=== PATIENT | female | born 1985 ===

== ENCOUNTER 2018-09-28 14:57 | Outpatient (CLI) | payer OTHER ==
[~2018-09-28] VITALS: Ht 165.1 cm; Wt 98.0 kg
[2018-10-01] MEDS ORDERED: OXC5T PO (07:24)
[2018-10-01] MEDS ORDERED: DOCU100C37 PO (07:24)
[2018-10-01] MEDS ORDERED: ACET-77 PO (07:24)
[2018-10-01] MEDS ORDERED: IBUP-1780 PO (07:24)
== END 2018-09-28 15:09 | disposition home or self-care (01) ==
LOC: PREOP 14:57
PROVIDERS: ATTEND Obstetrics & Gynecology
DX: Z01.818 Encounter for other preprocedural examination (principal)

== ENCOUNTER 2018-09-30 06:20 | Inpatient (IN) | payer OTHER ==
[2018-09-30] VITALS (10 sets, daily range): BP systolic 86–124; BP diastolic 58–76
--- NOTE | 2018-09-30 06:19 | NUR ---
SHARMILA RUSSO presented to unit via ambulation from home, accompanied by s.o, for REPEAT . SHARMILA RUSSO weighed, gowned, voided, and to bed. EFHM and TOCO applied, VS taken. SHARMILA RUSSO oriented to bed controls, call light, TV, heat, and A/C controls.
[~2018-09-30 06:20] MED LIST: CITRIC ACID/SOB CIT (BICITRA) 30 ML UDC ONE; FAMOTIDINE 20MG/2ML IV (PEPCID) ONE; LACTATED RINGERS 1,000 ML IV ONE; METOCLOPRAMIDE INJ 10 MG/2 ML (REGLAN) ONE; ceFAZolin 2 GM/50 ML NS 50 ML ONE
[2018-09-30] MEDS ORDERED: ceFAZolin 2 GM/50 ML NS 50 ML IV ONE (06:30)
[2018-09-30 06:53] LABS: BASOPHILS % (AUTO) 0 % (0-10); EOSINOPHILS # (AUTO) 0.1 10^3/uL (0.0-0.3); EOSINOPHILS % (AUTO) 1 % (0-10); HEMATOCRIT 35 % (35-52); HEMOGLOBIN 11.6 G/DL (11.5-16.0); LYMPHOCYTES # (AUTO) 1.7 X 10^3 (1.0-4.0); LYMPHOCYTES % (AUTO) 19 % (12-44); MEAN CORPUSCULAR HEMOGLOBIN 27 PG (25-34); MEAN CORPUSCULAR HGB CONC 33 G/DL (32-36); MEAN CORPUSCULAR VOLUME 83 FL (80-99); MEAN PLATELET VOLUME 10.3 FL (7.4-10.4); MONOCYTES # (AUTO) 0.8 X 10^3 (0.0-1.0); MONOCYTES % (AUTO) 9 % (0-12); NEUTROPHILS # (AUTO) 6.6 X 10^3 (1.8-7.8); NEUTROPHILS % (AUTO) 72 % (42-75); PLATELET COUNT 246 10^3/uL (130-400); RED CELL DISTRIBUTION WIDTH 13.8 % (10.0-14.5); WHITE BLOOD COUNT 9.2 10^3/uL (4.3-11.0)
[2018-09-30] MEDS ORDERED: CITRIC ACID/SOB CIT (BICITRA) 30 ML UDC PO ONE (07:00)
[2018-09-30] MEDS ORDERED: FAMOTIDINE 20MG/2ML IV (PEPCID) IV ONE (07:00)
[2018-09-30] MEDS ORDERED: METOCLOPRAMIDE INJ 10 MG/2 ML (REGLAN) IV ONE (07:00)
[2018-09-30] MEDS ORDERED: LACTATED RINGERS 1,000 ML IV PRN (07:00)
--- NOTE | 2018-09-30 07:48 | History & Physical-OB/GYN ---
History of Present Illness History of Present Illness Reason for visit/HPI Ms. Billingsley is being admitted for a scheduled at 39 weeks. She has had C-Sections in the past. Date of Admission Sep 30, 2018 at 06:20 Date Seen by a Provider: Sep 30, 2018 Time Seen by a Provider: 07:00 I consulted on this patient on 09/30/18 07:42 Attending Physician Bry Pacheco DO Admitting Physician Bry Pacheco DO Consult Allergies and Home Medications Allergies Coded Allergies: No Known Drug Allergies (Unverified , 09/28/18) Home Medications No Active Prescriptions or Reported Meds Patient Home Medication List Home Medication List Reviewed: Yes Past Lvywyib-Lxcewl-Tqqryo Hx Patient Social History Marrital Status: Number of Children: 3 Number of living children: 3 Employed/Student: employed Alcohol Use: Denies Use Recreational Drug Use: No Physical Abuse Screen: No Sexual Abuse: No Recent Hopitalizations: No Seasonal Allergies Seasonal Allergies: No Surgeries Yes Section Respiratory No Cardiovascular No Neurological No Reproductive System Expected Date of Delivery: Oct 06, 2018 Genitourinary No Gastrointestinal No Musculoskeletal No Endocrine History of Endocrine Disorders: No HEENT History of HEENT Disorders: No Cancer No Psychosocial History of Psychiatric Problem: No Integumentary History of Skin or Integumenta: No Blood Transfusions History of Blood Disorders: No Family Medical History Family Hx: Patient reports no known family medical history. Review of Systems Constitutional: see HPI Expected Date of Delivery: Oct 06, 2018 Control/STD Prophylaxis: None Physical Exam Physical Exam Vital Signs Capillary Refill : Labs Laboratory Tests 09/30/18 06:40: White Blood Count 9.2, Red Blood Count 4.26L, Hemoglobin 11.6, Hematocrit 35, Mean Corpuscular Volume 83, Mean Corpuscular Hemoglobin 27, Mean Corpuscular Hemoglobin Concent 33, Red Cell Distribution Width 13.8, Platelet Count 246, Mean Platelet Volume 10.3, Neutrophils (%) (Auto) 72, Lymphocytes (%) (Auto) 19, Monocytes (%) (Auto) 9, Eosinophils (%) (Auto) 1, Basophils (%) (Auto) 0, Neutrophils # (Auto) 6.6, Lymphocytes # (Auto) 1.7, Monocytes # (Auto) 0.8, Eosinophils # (Auto) 0.1, Basophils # (Auto) 0.0 General Appearance: No Apparent Distress, WD/WN Respiratory: Chest Non Tender, Lungs Clear Cardiovascular: Regular Rate, Rhythm, No Murmur Abdominal: non tender Assessment/Plan Assessment and Plan Intrauterine at 39 1/7 weeks 2. Previous Admission Diagnosis Admission Status: Inpatient Order (span 2 midnights) Reason for Inpatient Admission: at 39 1/7 weeks with previous , scheduled for an elective repeat Clinical Quality Measures DVT/VTE Risk/Contraindication: Risk Factor Score Per Nursin RFS Level Per Nursing on Admit: 1=Low/No VTE PPX BRY PACHECO DO Sep 30, 2018 07:48
[2018-09-30] MEDS ORDERED: OXYTOCIN/NORMAL SALINE 1,000 ML IV ONE (09:17)
[2018-09-30] MEDS ORDERED: fentaNYL INJECTION 100 MCG/2 ML AMP ONE (09:18)
[2018-09-30] MEDS ORDERED: PHENYLEPHRINE 100 MCG/ML 10 ML (ANESTHESIA) SYR ONE (09:59)
[2018-09-30] MEDS ORDERED: LIDOCAINE PF 2% 5 ML (XYLOCAINE) VIAL ONE (10:32)
--- NOTE | 2018-09-30 10:42 | Operative Report ---
Operative Report Date of Procedure/Surgery Sep 30, 2018 Surgeon (s) SANDRA BATRES DO Manufacturer Representative (s): None Post-Operative Diagnosis Intrauterine at 39 1/7 week Previous Procedure Performed Repeat Description of Procedure Anesthesia Type: Spinal Estimated blood loss (mL): 500 ml Specimen(s) collected/removed Placenta Previous skin scar Description of the Procedure Ms. Billingsley was taken the Operating Room with IV fluids running. Once in the OR, Spinal Anesthesia was administered without difficulty. A Hubbard Catheter was inserted. She was placed in the supine position with a leftward tilt. She was then prepped and draped in the normal sterile fashion. Anesthesia was tested and found to be adequate. An elliptical incision was made over her previous skin scar, with the old scar being removed. The incision was then carried down to the underlying layer of the fascia. The fascia was nicked in the midline and extended laterally. The fascia was elevated and the rectus muscle dissected off bluntly and sharply. The rectus muscle was in the midline. The peritoneum was identified and entered sharply, the incision was extended superi anders and inferiorly with good visualization of the bladder. The vesicouterine peritoneum was identified and dissected off the lower uterine segment. The lower uterine segment was incised and extended laterally with the bandage scissors. The membranes were ruptured (clear fluid). With the assist of the vacuum extractor the vertex was delivered, orally and nasally suctioned immed iately. A viable female infant was delivered (7 lb 9 oz, 1, 8). The cord was doubly clamped and cut. [place] handed off to waiting Pediatric Caregiver where NRP protocol was followed. The placenta was manually extracted. The uterus was exteriorized and cleared of all clots and debris. The uterus was closed first with a 0-Vicryl in a running locked fashion. A second imbricating layer was placed with 0-Vicryl. The vesicouterine peritoneum was approximated with 3-0 Vicryl in a running fashion. The uterus was returned to the pelvic cavity. The gutters were cleared of all clots and debris. The parietal peritoneum was closed with 3-0 Vicryl. The fascia was approximated with 0- Vicryl. The subcutaneous tissues were approximated with 3-0 Plain Gut. Then, the skin was closed with 4-0 Vicryl in a subcuticular manner. Sponge, instruments and needle counts were correct x 3. Ms. Billingsley was taken to the Recovery Room in good and stable condition. Findings of the Procedure A viable female , 7 lb 9 oz, 1, 8. Allergies and Home Medications Allergies Coded Allergies: No Known Drug Allergies (Unverified , 09/28/18) Home Medications No Active Prescriptions or Reported Meds Patient Home Medication List Home Medication List Reviewed: Yes SANDRA BATRES DO Sep 30, 2018 10:42
[2018-09-30] MEDS ORDERED: BISACODYL 10 MG SUPP (DULCOLAX) PR PRN (10:45)
[2018-09-30] MEDS ORDERED: TETANUS,DIPTH,PERTUSS P/F (BOOSTRIX) 0.5 ML VIAL IM SCH (10:45)
[2018-09-30] MEDS ORDERED: morphine INJ 4 MG/ML 1 ML (VIAL/SYRINGE) IV PRN (10:45)
[2018-09-30] MEDS ORDERED: MEASLES,MUMPS,RUBELLA 1 EA INJ SC SCH (10:45)
[2018-09-30] MEDS ORDERED: ONDANSETRON 4 MG/2 ML (SDV) Z0FRAN IVP PRN (10:45)
[2018-09-30] MEDS ORDERED: BUPIVACAINE 0.5% 30 ML (SENSORCAINE) VIAL ONE (10:47)
[2018-09-30] MEDS ORDERED: ERYTHROMYCIN OPHTH OINT 1 GM (SINGLE USE) TUBE ONE (10:57)
[2018-09-30] MEDS ORDERED: PHYTONADIONE (VIT. K) NEONATAL 1 MG/0.5 ML AMP ONE (10:57)
--- NOTE | 2018-09-30 11:45 | NUR ---
Pt transferred to room 305 via bed with PACU staff @ side. pt alert, talking. report received from BERENICE Pandya. care assumed of pt.
--- NOTE | 2018-09-30 11:50 | NUR ---
initial shift assessment completed. see interventions for further. abd dressing D/I. v-pad in place. denies c/o's @ time. family @ side.
[2018-09-30] MEDS: METOCLOPRAMIDE 10 MG (REGLAN) TAB PO SCH ×2 (12:51→18:45)
[2018-09-30] MEDS: ACETAMINOPHEN 500 MG TAB (TYLENOL) PO SCH ×2 (12:52→18:45)
[2018-09-30] MEDS: KETOROLAC 30 MG/ML VIAL IV SCH ×2 (12:52→18:57)
[2018-09-30] MEDS ORDERED: CATHETER FLUSH 10 ML SYR IV SCH (14:00)
--- NOTE | 2018-09-30 14:30 | NUR ---
IV converted to HL. pt denied c/o's @ time.
--- NOTE | 2018-09-30 16:10 | NUR ---
assisted up to BR. +void 400cc urine. darlin-care offered. v-pad and panties in place.
--- NOTE | 2018-09-30 18:30 | NUR ---
RT notified of IS.
--- NOTE | 2018-09-30 19:15 | NUR ---
report given to next shift.
[2018-09-30] MEDS: DOCUSATE SODIUM 100 MG (COLACE) CAP PO SCH (20:58)
[2018-10-01] MEDS: METOCLOPRAMIDE 10 MG (REGLAN) TAB PO SCH ×2 (00:45→06:20)
[2018-10-01] MEDS: ACETAMINOPHEN 500 MG TAB (TYLENOL) PO SCH ×3 (00:46→12:53)
[2018-10-01 00:47] VITALS: BP 109/66
[2018-10-01] MEDS: KETOROLAC 30 MG/ML VIAL IV SCH ×2 (00:47→06:20)
[2018-10-01 03:27] VITALS: BP 103/72
[2018-10-01] MEDS ORDERED: MILK OF MAGNESIA 400 MG/5 ML 30 ML UDC PO PRN (05:00)
[2018-10-01 05:54] LABS: BASOPHILS % (AUTO) 0 % (0-10); EOSINOPHILS # (AUTO) 0.1 10^3/uL (0.0-0.3); EOSINOPHILS % (AUTO) 1 % (0-10); HEMATOCRIT 30 % (35-52); LYMPHOCYTES # (AUTO) 1.4 X 10^3 (1.0-4.0); LYMPHOCYTES % (AUTO) 12 % (12-44); MEAN CORPUSCULAR HEMOGLOBIN 28 PG (25-34); MEAN CORPUSCULAR HGB CONC 33 G/DL (32-36); MEAN CORPUSCULAR VOLUME 84 FL (80-99); MEAN PLATELET VOLUME 10.4 FL (7.4-10.4); MONOCYTES # (AUTO) 1.1 X 10^3 (0.0-1.0); MONOCYTES % (AUTO) 10 % (0-12); NEUTROPHILS # (AUTO) 9.2 X 10^3 (1.8-7.8); NEUTROPHILS % (AUTO) 78 % (42-75); PLATELET COUNT 171 10^3/uL (130-400); RED CELL DISTRIBUTION WIDTH 13.5 % (10.0-14.5); WHITE BLOOD COUNT 11.9 10^3/uL (4.3-11.0)
--- NOTE | 2018-10-01 07:10 | NUR ---
here. dismissal orders received.
--- NOTE | 2018-10-01 07:20 | Discharge Summary ---
Diagnosis/Chief Complaint Date of Admission Sep 30, 2018 at 06:20 Date of Discharge October 01, 2018 Discharge Date: Oct 01, 2018 Discharge Time: 07:15 Admission Diagnosis Admission Diagnosis Intrauterine at 39 1/7 weeks 2. Previous Discharge Diagnosis Intrauterine at 39 1/7 weeks 2. Previous Reason Hospital Visit Ms. Billingsley is being admitted for a scheduled at 39 weeks. She has had C-Sections in the past. Discharge Summary Hospital Course Was the Problem List Reviewed?: Yes Hospital Course Ms. Billingsley was admitted for scheduled . The surgery was performed without complications. Postoperatively, she was given pain medication and other comfort measures. Her day of surgery course was unremarkable. Postoperative Day #1, found Ms. Billingsley voiding freely, passing gas, controlling her pain with oral medications, and ambulating without assist. Her vital signs remained stable throughout her hospitalization. Once she has a bowel movement and tolerates a Clear Liquid Diet I will discharge her to home with instructions, prescriptions and a follow up appointment. Labs Laboratory Tests 09/30/18 06:40: Red Blood Count 4.26L 10/01/18 05:25: Red Blood Count 3.61L, White Blood Count 11.9H, Hemoglobin 10.0L, Hematocrit 30L , Neutrophils (%) (Auto) 78H, Neutrophils # (Auto) 9.2H, Monocytes # (Auto) 1.1H Procedures None. Discharge Physical Examination Allergies: Coded Allergies: No Known Drug Allergies (Unverified , 09/28/18) Vitals & I&Os Vital Signs Date Time Temp Pulse Resp B/P (MAP) Pulse Ox O2 Delivery O2 Flow Rate FiO2 10/01/18 03:27 98.3 81 16 103/72 (82) 97 Room Air General Appearance: Alert, Oriented X3, Cooperative, No Acute Distress HEENT: PERRLA, EOMI Respiratory: Clear to Auscultation, Normal Air Movement Cardiovascular: Regular Rate, No Murmurs Abdominal: Normal Bowel Sounds, Other (Mildly tender, incision is clean, dry and well approximated) Extremities: No Clubbing, No Cyanosis, No Edema Skin: No Rashes Neuro: Normal Gait, Normal Speech, Cranial Nerves 3-12 NL Psych/Mental Status: Mental Status NL Discharge Home Medications Reviewed and agree with Discharge Medication list on patient's Discharge Instruction sheet Instructions to Patient/Family Please see electronic discharge instructions given to patient. Clinical Quality Measures DVT/VTE Risk/Contraindication: Risk Factor Score Per Nursin RFS Level Per Nursing on Admit: 1=Low/No VTE PPSANDRA DEL ROSARIO DO Oct 01, 2018 07:20
[2018-10-01] MEDS ORDERED: IBUP-1780 PO (07:24)
[2018-10-01] MEDS ORDERED: DOCU100C37 PO (07:24)
[2018-10-01] MEDS ORDERED: ACET-77 PO (07:24)
[2018-10-01] MEDS ORDERED: OXC5T PO (07:24)
[2018-10-01 08:55] VITALS: BP 105/59
--- NOTE | 2018-10-01 08:55 | NUR ---
initial shift assessment completed, see interventions for further. abd incision EZEKIEL with Dermabond intact @ incision site. POC reviewed. reports having BM.
--- NOTE | 2018-10-01 10:30 | Anesthesia-Regional Post-Op ---
Regional Patient Condition Mental Status: Alert, Oriented x3 Circulation: Same as Pre-Op Headache: Absent Sensation: Full Recovery Motor Block: Absent Post Op Complications Complications None Follow Up Care/Instructions Patient Instructions None needed. Anesthesia/Patient Condition Patient is doing well, no complaints, stable vital signs, no apparent adverse anesthesia problems. No complications reported per nursing. YAZMIN PARTIDA CRNA Oct 01, 2018 10:30
[2018-10-01] MEDS: DOCUSATE SODIUM 100 MG (COLACE) CAP PO SCH (12:53)
--- NOTE | 2018-10-01 12:59 | NUR ---
dismissal instructions given, states understanding. reviewed follow up appointments and Rx's. administration schedule reviewed. signature page signed, placed on chart.
--- NOTE | 2018-10-01 14:20 | NUR ---
pt ambulated to private vehicle with BERENICE Branch , and s/o @ side. pt stable with no sx's of distress noted. secured in rear facing car seat.
[2018-10-01] MEDS ORDERED: IBUPROFEN 800 MG (MOTRIN) TAB PO SCH (16:45)
== END 2018-10-01 14:20 | disposition home or self-care (01) | DRG 788 ==
LOC: LDRP 06:20 → WS 11:45
PROVIDERS: ADMIT Obstetrics & Gynecology; ATTEND Obstetrics & Gynecology
PROC: 10D00Z1 Extraction of Products of Conception, Low, Open Approach (ICD-10-PCS; principal; 2018-09-30 09:54)
DX: O34.211 Maternal care for low transverse scar from previous cesarean delivery (principal); Z3A.39 39 weeks gestation of pregnancy; Z37.0 Single live birth
CPT/HCPCS: 36415; 85025; 86850; 86900; 86901; 94664